=== PATIENT | male | born 1980 | race Caucasian/White ===

== ENCOUNTER 2016-12-02 08:15 | Emergency (ER) | payer OTHER ==
--- NOTE | ~2016-12-02 | ER ---
PATIENT'S NAME: WILY CANDELARIO [facility] AGE: 36 Y [address] ROOM: [place] [address] LOCATION: [facility] ADMIT DATE: 12/02/2016 ER/Outpatient Report DISCHARGE DATE: 12/02/2016 FAMILY PHYSICIAN: Hugo Davis MD ATTENDING PHYSICIAN: Tammi Ortega Time of Arrival: 814. Time Seen: 822. IDENTIFICATION: 36-year-old male. CHIEF COMPLAINT: Hand laceration. HISTORY OF PRESENT ILLNESS: The patient is a 36-year-old male, who was working on the [employer] and lacerated his hand on the [place] 20 minutes prior to arrival. No other injuries. The [place] was not on. PAST MEDICAL HISTORY: ALLERGIES: TO PENICILLIN, SULFA, AND DUST MITES. CURRENT MEDICATIONS: Vitamins and workout supplements. MEDICAL PROBLEMS: Denies. PRIOR SURGERIES: Denies. SOCIAL HISTORY: The patient lives here in [place]. Tobacco use, denies. Alcohol use, social. Drug use, denies. REVIEW OF SYSTEMS: All systems reviewed and negative other than what is noted in the HPI. Last tetanus greater than 10 years. PHYSICAL EXAMINATION: VITAL SIGNS: Height 5 feet 9 inches and weight 84.9 kg. Blood pressure 144/97, pulse 91, respirations 14, temperature 97.3, sats 98% on room air. PATIENT'S NAME: WILY CANDELARIO [facility] AGE: 36 Y [address] ROOM: [place] [address] LOCATION: [facility] ADMIT DATE: 12/02/2016 ER/Outpatient Report DISCHARGE DATE: 12/02/2016 FAMILY PHYSICIAN: Hugo Davis MD ATTENDING PHYSICIAN: Tammi Ortega GENERAL: This is a 36-year-old male, in no acute distress. HEENT: Unremarkable. LUNGS: Clear to auscultation. HEART: Regular rate and rhythm. ABDOMEN: Soft. SKIN: [place], warm, and dry. EXTREMITIES: The patient has a 5 cm laceration on the dorsum of his right hand. No tendon involvement. He has good distal pulses. Sensation is intact and he has full range of motion. The area was anesthetized and draped in a sterile fashion. 1% Xylocaine without epinephrine was used for local anesthesia per Dr. Jodi Lloyd, third year family practice resident. Simple interrupted sutures using 4-0 Ethilon were placed without complications. IMPRESSION AND PLAN: 5 cm laceration right hand, repaired. Wound care discussed. Tetanus has been boosted. Follow up with Dr. Davis in 7-10 days for suture removal. Follow up sooner if any problems or concerns. Tylenol or Advil for pain. The patient understands and agrees, and all questions have been answered. MD MOMO MONTOYA/gris /[id number] d: 12/02/166 t: 12/03/16 1244, OUTPATIENT REPORT
== END 2016-12-02 09:15 | disposition disaster alternative care site (69) ==
LOC: GACC 08:15
PROC: 0HQFXZZ Repair Right Hand Skin, External Approach (ICD-10-PCS; principal; 2016-12-02)
DX: S61.411A Laceration without foreign body of right hand, initial encounter (principal); Z88.0 Allergy status to penicillin; Z88.2 Allergy status to sulfonamides; Z79.899 Other long term (current) drug therapy; W26.8XXA Contact with other sharp object(s), not elsewhere classified, initial encounter